=== PATIENT | female | born 1975 | race Hispanic/Latino ===

== ENCOUNTER 2020-07-07 16:19 | Emergency (ER) | payer BC ==
--- NOTE | 2020-07-07 18:17 | EDPHYS ---
Physician Documentation [facility] Name: Mercy Almanza Age: 45 yrs Sex: Female : 1975 Arrival Date: 07/07/2020 Time: 16:28 Bed 18 Private MD: ED Physician James Quiñones HPI: 07/07 18:36 This 45 yrs old Female presents to ER via Ambulatory with complaints of snw chills, Shortness Of Breath. 18:36 The patient has shortness of breath with light activity, during heavy activity. Onset: snw The symptoms/episode began/occurred acutely. Duration: The symptoms are intermittent, pt states she only has occasional difficulty with activity or if she gets too hot. Pt states she has been feeling better every day until today. Associated signs and symptoms: Pertinent positives: This patient does not have any pertinent positive signs or symptoms associated with shortness of breath. Severity of symptoms: At their worst the symptoms were mild. The patient has not experienced similar symptoms in the past. It is unknown whether or not the patient has recently seen a physician. dx with CoVid 19 two weeks ago. Historical: - Allergies: 16:45 No Known Allergies; jd3 - Home Meds: 16:45 None [Active]; jd3 - PMHx: 16:45 None; jd3 - PSHx: 16:45 None; jd3 - Immunization history:: Adult Immunizations up to date. - Social history:: Smoking status: Patient denies any tobacco usage or history of. ROS: 18:34 Constitutional: Negative for fever, chills, and weight loss, Eyes: Negative for injury, snw pain, redness, and discharge, ENT: Negative for injury, pain, and discharge, Neck: Negative for injury, pain, and swelling, Cardiovascular: Negative for chest pain, palpitations, and edema, Abdomen/GI: Negative for abdominal pain, nausea, vomiting, diarrhea, and constipation, Back: Negative for injury and pain, : Negative for injury, bleeding, discharge, and swelling, MS/Extremity: Negative for injury and deformity, Skin: Negative for injury, rash, and discoloration, Neuro: Negative for headache, weakness, numbness, tingling, and seizure, Psych: Negative for depression, anxiety, suicide ideation, homicidal ideation, and hallucinations. 18:34 Respiratory: Positive for cough, with no reported sputum, occasional shortness of breath. . Exam: 18:31 Constitutional: This is a well developed, well nourished patient who is awake, alert, snw and in no acute distress. Head/Face: Normocephalic, atraumatic. Eyes: Pupils equal round and reactive to light, extra-ocular motions intact. Lids and lashes normal. Conjunctiva and sclera are non-icteric and not injected. Cornea within normal limits. Periorbital areas with no swelling, redness, or edema. ENT: Nares patent. No nasal discharge, no septal abnormalities noted. Tympanic membranes are normal and external auditory canals are clear. Oropharynx with no redness, swelling, or masses, exudates, or evidence of obstruction, uvula midline. Mucous membranes moist. Neck: Trachea midline, no thyromegaly or masses palpated, and no cervical lymphadenopathy. Supple, full range of motion without nuchal rigidity, or vertebral point tenderness. No Meningismus. Chest/axilla: Normal chest wall appearance and motion. Nontender with no deformity. No lesions are appreciated. Cardiovascular: Regular rate and rhythm with a normal S1 and S2. No gallops, murmurs, or rubs. Normal PMI, no JVD. No pulse deficits. Abdomen/GI: Soft, non-tender, with normal bowel sounds. No distension or tympany. No guarding or rebound. No evidence of tenderness throughout. Back: No spinal tenderness. No costovertebral tenderness. Full range of motion. Skin: Warm, dry with normal turgor. Normal color with no rashes, no lesions, and no evidence of cellulitis. MS/ Extremity: Pulses equal, no cyanosis. Neurovascular intact. Full, normal range of motion. Neuro: Awake and alert, GCS 15, oriented to person, place, time, and situation. Cranial nerves II-XII grossly intact. Motor strength 5/5 in all extremities. Sensory grossly intact. Cerebellar exam normal. Normal gait. Psych: Awake, alert, with orientation to person, place and time. Behavior, mood, and affect are within normal limits. 18:31 Respiratory: the patient does not display signs of respiratory distress, Respirations: no acute changes, shallow respirations, Breath sounds: rhonchi, that are mild, are heard in the left posterior lower lobe, Respiratory rate: 18 Vital Signs: 16:45 BP 141 / 82; Pulse 107; Resp 20 S; Temp 99.2(O); Pulse Ox 99% on R/A; Weight 77.11 kg jd3 (R); Height 5 ft. 1 in. (154.94 cm) (R); Pain 0/10; 18:17 BP 122 / 83; Pulse 88; Resp 18; Temp 99.0; Pulse Ox 99% on R/A; ph 16:45 Body Mass Index 32.12 (77.11 kg, 154.94 cm) jd3 MDM: 17:23 Patient medically screened. snw 18:34 Data reviewed: vital signs, nurses notes. Data interpreted: Pulse oximetry: on room air snw is 99 %. Interpretation: normal. Counseling: I had a detailed discussion with the patient and/or guardian regarding: the historical points, exam findings, and any diagnostic results supporting the discharge/admit diagnosis, radiology results, the need for outpatient follow up, for definitive care, to return to the emergency department if symptoms worsen or persist or if there are any questions or concerns that arise at home. Special discussion: Based on the history and exam findings, there is no indication for further emergent testing or inpatient evaluation. I discussed with the patient/guardian the need to see the primary care provider for further evaluation of the symptoms. 07/07 17:00 Order name: Chest Single View XRAY; Complete Time: 18:20 snw Administered Medications: No medications were administered Disposition: 07/07/20 18:17 Discharged to Home. Impression: Pneumonia due to SARS-associated coronavirus - Mild. - Condition is Stable. - Discharge Instructions: Community-Acquired Pneumonia, Adult, Rehydration, Adult, COVID-19. - Prescriptions for melatonin - take 10 milligram by ORAL route Every night for 14 days; 14 capsule. Pepcid 20 mg Oral Tablet - take 1 tablet by ORAL route every 12 hours for 14 days; 28 tablet. Albuterol Sulfate 90 mcg/actuation - inhale 1-2 puff by INHALATION route every 4-6 hours; 1 Inhaler. Zithromax 500 mg Oral Tablet - take 1 tablet by ORAL route once daily for 5 days; 5 tablet. - Medication Reconciliation Form, Thank You Letter, Antibiotic Education, Prescription Opioid Use form. - Follow up: Private Physician; When: 2 - 3 days; Reason: Recheck today's complaints, Continuance of care, Re-evaluation by your physician. Follow up: Emergency Department; When: As needed; Reason: Worsening of condition. - Notes: Please take a baby aspirin daily x 14 days. Addendum: 07/10/2020 08:23 Co-signature as Attending Physician, James Quiñones MD I agree with the assessment and k dr plan of care. Signatures: Dispatcher [employer] EDMS James Quiñones MD MD [facility] Sonal Ramirez, MUSIC ENGINEER-C MUSIC ENGINEER-[place] Sushma Garcia, RN RN ph Matt Lorenz RN RN jd3 Corrections: (The following items were deleted from the chart) 07/07 18:34 18:17 07/07/2020 18:17 Discharged to Home. Impression: Pneumonia due to SARS-associated ph coronavirus - Mild. Condition is Stable. Forms are Medication Reconciliation Form, Thank You Letter, Antibiotic Education, Prescription Opioid Use. Follow up: Private Physician; When: 2 - 3 days; Reason: Recheck today's complaints, Continuance of care, Re-evaluation by your physician. Follow up: Emergency Department; When: As needed; Reason: Worsening of condition. snw
--- NOTE | 2020-07-07 18:17 | ER ---
Nurse's Notes [facility] Name: Mercy Almanza Age: 45 yrs Sex: Female : 1975 Arrival Date: 07/07/2020 Time: 16:28 Bed 18 Private MD: Diagnosis: Pneumonia due to SARS-associated coronavirus-Mild Presentation: 07/07 16:43 Chief complaint: Patient states: "i am having shortness of breath and chills for 2 jd3 weeks. I was diagnosed with COVID 2 weeks ago. Coronavirus screen: Client presents with at least one sign or symptom that may indicate coronavirus-19. Standard/surgical mask placed on the client. Provider contacted for isolation considerations. Client reports previous positive COVID test result. Ebola Screen: Patient negative for fever greater than or equal to 101.5 degrees Fahrenheit, and additional compatible Ebola Virus Disease symptoms. Initial Sepsis Screen: Does the patient meet any 2 criteria? No. Patient's initial sepsis screen is negative. Does the patient have a suspected source of infection? No. Patient's initial sepsis screen is negative. Risk Assessment: Do you want to hurt yourself or someone else? Patient reports no desire to harm self or others. Onset of symptoms was June 24, 2020. 16:43 Method Of Arrival: Ambulatory jd3 16:43 Acuity: ALEXUS 3 jd3 Historical: - Allergies: 16:45 No Known Allergies; jd3 - Home Meds: 16:45 None [Active]; jd3 - PMHx: 16:45 None; jd3 - PSHx: 16:45 None; jd3 - Immunization history:: Adult Immunizations up to date. - Social history:: Smoking status: Patient denies any tobacco usage or history of. Screenin:41 Abuse screen: Denies threats or abuse. Denies injuries from another. Nutritional ph screening: No deficits noted. Tuberculosis screening: No symptoms or risk factors identified. Fall Risk None identified. Assessment: 16:57 General: Appears in no apparent distress. Behavior is calm, cooperative, appropriate ph for age, Reports chills for fever for > 3 days. Pain: Complains of pain in "body aches". Neuro: Level of Consciousness is awake, alert, obeys commands, Oriented to person, place, time, situation. Cardiovascular: Capillary refill < 3 seconds in bilateral fingers Patient's skin is warm and dry. Respiratory: Reports shortness of breath on exertion cough that is Airway is patent Respiratory effort is even, unlabored, Respiratory pattern is regular, symmetrical. GI: No signs and/or symptoms were reported involving the gastrointestinal system. Derm: Skin is intact, is healthy with good turgor, Skin is pink, warm \\T\\ dry. Musculoskeletal: Circulation, motion, and sensation intact. Range of motion: intact in all extremities. 18:32 Reassessment: Patient appears in no apparent distress at this time. Patient and/or ph family updated on plan of care and expected duration. Pain level reassessed. Patient is alert, oriented x 3, equal unlabored respirations, skin warm/dry/pink. Pt d/c home w/ prescriptions. Vital Signs: 16:45 BP 141 / 82; Pulse 107; Resp 20 S; Temp 99.2(O); Pulse Ox 99% on R/A; Weight 77.11 kg jd3 (R); Height 5 ft. 1 in. (154.94 cm) (R); Pain 0/10; 18:17 BP 122 / 83; Pulse 88; Resp 18; Temp 99.0; Pulse Ox 99% on R/A; ph 16:45 Body Mass Index 32.12 (77.11 kg, 154.94 cm) jd3 ED Course: 16:28 Patient arrived in ED. ds1 16:33 Sushma Garcia, RN is Primary Nurse. ph 16:41 Patient has correct armband on for positive identification. Bed in low position. Call ph light in reach. Side rails up X 1. Pulse ox on. NIBP on. Door closed. Noise minimized. 16:45 Triage completed. jd3 16:46 Arm band placed on. jd3 16:59 Sonal Ramirez FNP-C is PHCP. snw 16:59 James Quiñones MD is Attending Physician. snw 17:38 Chest Single View XRAY In Process Unspecified. EDMS 18:18 No provider procedures requiring assistance completed. Patient did not have IV access ph during this emergency room visit. Administered Medications: No medications were administered Outcome: 18:17 Discharge ordered by . snw 18:33 Discharged to home ambulatory. ph 18:33 Condition: good 18:33 Discharge instructions given to patient, Instructed on discharge instructions, follow up and referral plans. medication usage, Demonstrated understanding of instructions, follow-up care, medications, Prescriptions given X 4. 18:34 Patient left the ED. ph Signatures: Dispatcher [employer] EDMS Sonal Ramirez, PHU-C COOKER TENDER-[place] ds1 Sushma Garcia, RN RN ph Matt Lorenz RN RN jd3
--- NOTE | 2020-07-07 18:19 | RAD REPORT ---
EXAM DESCRIPTION: RAD - Chest Single View - 07/07/2020 5:38 pm CLINICAL HISTORY: SOB Chest pain. COMPARISON: No comparisons FINDINGS: Portable technique limits examination quality. Mild interstitial lung opacities are present bilaterally suggesting interstitial pneumonitis/ viral b ronchitis. The heart is normal in size. No displaced fractures.
[2020-07-07 18:39] VITALS: O2SAT 99
[2020-07-07 18:40] VITALS: BP 122/83; TEMP 99
== END 2020-07-07 18:34 | disposition home or self-care (01) ==
LOC: ER 16:19
DX: U07.1 COVID-19 (principal); J12.89 Other viral pneumonia
CPT/HCPCS: 71045; 99283

== ENCOUNTER 2020-07-22 23:44 | Observation (INO) | payer BC, OTHER ==
--- OUTSIDE RECORDS SUMMARY | 2020-07-22 23:46 | XMS REPORT | Continuity of Care Document ---
:1975 Author Organization [facility] t Address [address] [place] [address] Care Team Providers Name Role Phone Cary Bueno DO Attending Clinician Problems This patient has no known problems. Allergies, Adverse Reactions, Alerts This patient has no known allergies or adverse reactions. Medications This patient has no known medications. Procedures This patient has no known procedures. Encounters Start End Encounter Admission Attending Care Care Encounter Source Date/Time Date/Time Type Type Clinicians Facility Department ID 2020-06-30 2020-07-01 Emergency MARY KAY Bueno [id number] 22:47:00 01:15:00 Cary Callahan [id number] [place] [id number] [place] [id number] Results This patient has no known results.
--- OUTSIDE RECORDS SUMMARY | 2020-07-22 23:46 | XMS REPORT | Summary of Care ---
:1975 Author Organization [facility] Address [address] [place] [id number] Care Team Providers Name Role Phone Pcp, Does Not Have A Primary Care Provider Reason for Referral Radiology Services (STAT) Status Reason Specialty Diagnoses / Referred By Referred To Procedures Contact Contact New Request Diagnostic Diagnoses Cough Cary Bueno Radiology Procedures XR CHEST 1 VW COVID Chest 1 View J, DO [address] [place] [id number] Reason for Visit Reason Comments Shortness of Breath Palpitations Fever Anxiety Auth/Cert Status Reason Specialty Diagnoses / Referred By Referred To Procedures Contact Contact Emergency Medicine Diagnoses SHORTNESS OF BREATH [facility] Emergency Dept [address] [place] [address] Fax: Encounter Details Date Type Department Care Team Description 06/30/2020 - Emergency ADC-Emergency Cary Bueno, Cough ( Primary Dx) 07/01/2020 Department DO [address] [place] [id number] [place] [address] [phone] Allergies No Known Allergiesdocumented as of this encounter (statuses as of 07/01/2020) Medications No known medicationsdocumented as of this encounter (statuses as of 07/01/2020) Active Problems No known active problemsdocumented as of this encounter (statuses as of 07/01/2020) Social History Tobacco Use Types Packs/Day Years Used Date Never Assessed Sex Assigned at Date Recorded Not on file COVID-19 Exposure Response Date Recorded In the last month, have you been in contact with Yes 06/30/2020 10:56 PM CDT someone who was confirmed or suspected to have Coronavirus / COVID-19? documented as of this encounter Last Filed Vital Signs Vital Sign Reading Time Taken Comments Blood Pressure 145/84 06/30/2020 11:04 PM CDT Pulse 92 06/30/2020 11:04 PM CDT Temperature 37 C (98.6 F) 06/30/2020 11:04 PM CDT Respiratory Rate 16 06/30/2020 11:04 PM CDT Oxygen Saturation 99% 06/30/2020 11:04 PM CDT Inhaled Oxygen Concentration - - Weight 77.1 kg (170 lb) 06/30/2020 11:04 PM CDT Height - - Body Mass Index - - documented in this encounter Discharge Instructions Cary Salgado DO - 07/01/2020DIAGNOSIS 1. COVID NO LIFE-THREATENING FINDINGS ON TODAY'S EXAM. PROCEDURES IN THE ER TODAY: Chest xray Blood work Covid test MEDICATIONS ADMINISTERED IN THE ER TODAY: None YOUR PRESCRIPTIONS AND [id number] MEDICATION RECOMMENDATIONS: None SPECIAL CARE INSTRUCTIONS: None FOLLOW-UP RECOMMENDATIONS: RECOMMEND FOLLOW-UP WITH A PRIMARY CARE PROVIDER OR SPECIALIST IN 2-5 DAYS, ESPECIALLY IF NO IMPROVEMENT IN SYMPTOMS. TO FOLLOW-UP WITHIN THE [facility], TRY THESE OPTIONS (CLINIC APPOINTMENTS AVAILABLE ON [id number]-PABI BASIS): 1. SCHEDULE AN APPOINTMENT ONLINE AT [facility] 2. OR CALL THE [facility] ACCESS CENTER AT OR 3. OR CALL YOUR [facility] PHYSICIAN'S OFFICE DIRECTLY IF YOU ARE ALREADY AN ESTABLISHED [facility] PATIENT. OR, YOU MAY FOLLOW-UP WITH A PROVIDER OF YOUR CHOICE, SUCH : 1. A PHYSICIAN OF YOUR CHOICE 2. [facility], . LOCATIONS IN [facility] 3. [facility], [address], [place]; [phone] RETURN TO ER FOR WORSENING OF SYMPTOMS. AttachmentsThe following attachments cannot be sent through Care Everywhere. Coronavirus Disease 2019 (COVID-19) (Polish)documented in this encounter ED Notes Marilyn Scott RN - 06/30/2020 11:02 PM CDTPt reports palpitations, SOB, feeling anxious, with fever of 100.0F at home and [place] that started today after getting home from work. States that she suddenly felt really ill. Took Tylenol x2 approx 1800. Denies pain. Reports feeling faint. States her son who lives her tested positive for COVID19 approx2 weeks ago. Cary Armstrong DO - 06/30/2020 10:45 PM CDT [facility] Emergency Department Note Patient Name: Mercy Almanza Date of : 1975 45 year old female Treatment Room: [place] [address] Primary Care Physician: PATIENT DOES NOT HAVE A PCP Patient Escorted by: Family [5] Mode of Arrival: Personal means [1] EMS Treatment Prior to ED Arrival: CLOUD SYSTEMS ADMINISTRATOR treatment: Medication (comment) CLOUD SYSTEMS ADMINISTRATOR treatment comments: Tylenol x2 tabs approx 1800. Travel and Exposure Screening: Symptoms Does patient have any of these symptoms?: (not recorded) Exposure Screening Has patient had contact with someone with a communicable disease in the last month?: (not recorded) Diseases exposed to:: (not recorded) Is Patient ?: (not recorded) Exposure Date: (not recorded) Chief Complaint: Chief Complaint Patient presents with Shortness of Breath Palpitations Fever Anxiety History of Present Illness: Patient presents for eval for feeling weak and tired today. No cp, sob or cough. No n/v or diarrhea. States she felt like she had a fever earlier today so she took 2 Tylenol tablets. Did eat today.No dysuria. Has h/o htn, dm and lipids. Takes her DM meds prn. Son recently diagnosed with covid and he lives with her. Here for eval. Past Medical History/Immunizations: History reviewed. No pertinent past medical history. Tetanus received in last 5 years: Yes Childhood immunizations: Up-to-date Allergies: No Known Allergies Past Social History: Substance & Sexual Activity No substance use or sexual activity history on file. Past Surgical History: History reviewed. No pertinent surgical history. Review of Systems: Review of Systems Constitutional: Positive for fever. Negative for chills. Respiratory: Negative for cough and shortness of breath. Cardiovascular: Negative for chest pain. Gastrointestinal: Negative for abdominal pain, nausea and vomiting. Genitourinary: Negative for dysuria. Musculoskeletal: Negative for arthralgias, neck pain and neck stiffness. Skin: Negative for wound. Neurological: Positive for weakness. Psychiatric/Behavioral: Negative for agitation. Physical Exam: ED Triage Vitals [06/30/20 2304] Weight 77.1 kg (170 lb) Actual or estimated Height BP (!) 145/84 Pulse 92 Resp 16 Temp 37 C (98.6 F) Temp source Oral SpO2 99 % Measured on Room air Physical Exam Vitals signs and nursing note reviewed. Constitutional: Appearance: Normal appearance. HENT: Head: Normocephalic and atraumatic. Nose: Nose normal. Neck: Musculoskeletal: Normal range of motion. Cardiovascular: Rate and Rhythm: Normal rate. Pulmonary: Effort: Pulmonary effort is normal. No respiratory distress. Musculoskeletal: Normal range of motion. Skin: General: Skin is warm and dry. Neurological: General: No focal deficit present. Mental Status: She is alert and oriented to person, place, and time. Radiology: Hospital Encounter on 06/30/20 XR CHEST 1 VW COVID Narrative PROCEDURE: CHEST XRAY one view, CLINICAL INDICATION: cough COMPARISON: None FINDINGS: No focal consolidation, pleural effusion, or pneumothorax. The heart is normal in size. No acute osseous abnormality. Impression No acute cardiopulmonary process Disclaimer: Generally, the findings on chest imaging in COVID-19 are not specific, and overlap with other infections, including influenza, H1N1, SARS and MERS. According to the Centers for Disease Control (CDC) and the [employer], viral testing remains the only specific method of diagnosis even if CXR or CT findings are suggestive of COVID-19. Preliminary Report Dictated by Resident: Jose Roberto Zendejas Lab Results (24h): Recent Results (from the past 24 hour(s)) POCT TEST Collection Time: 06/30/20 11:20 PM Result Value Ref Range POCT PREG negative On board controls acceptable with C Line yes POCT PREG LOT # [id number] POCT PREG TEST DATE 08/23/2021 COVID-19 (ID NOW RAPID TESTING) Collection Time: 06/30/20 11:21 PM Specimen: NASOPHARYNGEAL SWAB Result Value Ref Range SARS-CoV-2 Rapid ID NOW Positive (A) Not Detected CBC with Differential Collection Time: 06/30/20 11:21 PM Result Value Ref Range WBC 4.78 4.30 - 11.10 10*3/L RBC 4.18 3.93 - 5.25 10*6/L HGB 10.4 (L) 11.6 - 15.0 g/dL HCT 33.6 (L) 35.7 - 45.2 % MCV 80.4 (L) 80.6 - 95.5 fL MCH 24.9 (L) 25.9 - 32.8 pg MCHC 31.0 (L) 31.6 - 35.1 g/dL RDW-SD 47.2 39.0 - 49.9 fL RDW-CV 16.1 (H) 12.0 - 15.5 % PLT 294 166 - 358 10*3/L MPV 10.5 9.5 - 12.9 fL NRBC/100 WBC 0.0 0.0 - 10.0 /100 WBCs NRBC x10^3 <0.01 10*3/L GRAN MAT (NEUT) % 60.7 % IMM GRAN % 0.20 % LYMPH % 25.9 % MONO % 10.9 % EOS % 1.9 % BASO % 0.4 % GRAN MAT x10^3(ANC) 2.90 1.88 - 7.09 10*3/uL IMM GRAN x10^3 <0.03 0.00 - 0.06 10*3/uL LYMPH x10^3 1.24 (L) 1.32 - 3.29 10*3/uL MONO x10^3 0.52 0.33 - 0.92 10*3/uL EOS x10^3 0.09 0.03 - 0.39 10*3/uL BASO x10^3 <0.03 0.01 - 0.07 10*3/uL Basic Metabolic Panel (NA, K, CL, CO2, GLUCOSE, BUN, CREATININE, CA) Collection Time: 06/30/20 11:21 PM Result Value Ref Range NA 138 135 - 145 mmol/L K 3.4 (L) 3.5 - 5.0 mmol/L CL 105 98 - 108 mmol/L CO2 TOTAL 25 23 - 31 mmol/L AGAP 8 2 - 16 BUN 7 7 - 23 mg/dL GLUCOSE 150 (H) 70 - 110 mg/dL CREATININE 0.68 0.50 - 1.04 mg/dL CALCIUM 8.9 8.6 - 10.6 mg/dL eGFR Calculation (Non-) 93.6 mL/min/1.73m2 eGFR Calculation () 113.4 mL/min/1.73m2 Hepatic Function Panel (ALB, T.PRO, BILI T, BU/BC, ALT, AST, ALK PHOS) Collection Time: 06/30/20 11:21 PM Result Value Ref Range TOTAL BILI 0.2 0.1 - 1.1 mg/dL BILI UNCON 0.4 0.1 - 1.1 mg/dL BILI CONJ 0.0 0.0 - 0.3 mg/dL T PROTEIN 8.0 6.3 - 8.2 g/dL ALBUMIN 4.4 3.5 - 5.0 g/dL ALK PHOS 90 34 - 122 U/L ALTv 22 5 - 35 U/L AST(SGOT) 32 13 - 40 U/L Troponin I Collection Time: 06/30/20 11:21 PM Result Value Ref Range TROPONIN I <0.012 <=0.034 ng/mL Orders and Treatments: Orders Placed This Encounter Procedures Chest 1 View COVID-19 (ID NOW RAPID TESTING) CBC with Differential Basic Metabolic Panel (NA, K, CL, CO2, GLUCOSE, BUN, CREATININE, CA) Hepatic Function Panel (ALB, T.PRO, BILI T, BU/BC, ALT, AST, ALK PHOS) Troponin I No orders of the defined types were placed in this encounter. ED COURSE patient presents for eval for feeling tired and no energy today. No cp or sob. No cough. [place] febrile earlier today so took 2 Tylenol. No n/v. Son recently diagnosed with covid and lives with her.Does not smoke. VSS here in the EC. No respiratory distress. Will obtain CXR. Will check labs and screen for covid. Anticipate discharge home later. 0050 - covid positive. cxr unremarkable. Patient feeling better. Ambulatory O2 sat >95%. Stable here in the EC and is ok for discharge home with PCP f/u. Advised to self-quarantine. MDM: Coding Diagnosis/Impression: ICD-10-CM ICD-9-CM 1. Cough R05 786.2 Disposition/Condition: ED Disposition None Discharge Medications: Patient's Medications No medications on file Follow-up: Electronically signed by: Cary Bueno DO 06/30/2020 11:15 PM documented in this encounter Miscellaneous Notes ED Nurse Note - Lois Atkinson RN - 07/01/2020 1:13 AM CDTPt given printed and verbal discharge instructions regarding covid virus infection, encouraged hydrat ion, Prescriptions provided: none Discussed alternating with Tylenol and ibuprofen every 3-4 hours as needed for fever or pain, and totake with food to avoid GI distress. Stay at home and self quarantine for at least 14 days. Pt verbalized understanding of instructions, pt awake alert oriented, resp reg unlabored, skin w/d, color appropriate for race, moves all ext well,pt encouraged to follow up with pcp Advised to seek medical attention for new/prolonged/worsening of symptoms, Symptoms improved No adverse reaction to meds given in ER noted upon discharge PIV d'cd, dressing to site, catheter in tact. Awake, alert oriented, resp reg unlabored, skin w/d, pt leaving amb with steady gait, in no apparent distress, D Nurse Note - Lois Atkinson RN - 07/01/2020 12:58 AM CDTInterpretor ID # [id number] D Nurse Note - Lois Atkinson RN - 06/30/2020 11:18 PM CDTLanguage patient flow coordinator ID #[id number]. D Nurse Note - Lois Atkinson RN - 06/30/2020 11:14 PM CDTPatient denies any symptoms at this time. D Nurse Note - Lois Atkinson, RN - 06/30/2020 11:10 PM CDTPatient ambulated in place for 1 minute while maintaining 02 saturations between 97%-99% on RA. documented in this encounter Plan of Treatment Name Type Priority Associated Diagnoses Date/Ti me XR CHEST 1 VW COVID IMAGING STAT Cough 06/30/20 20 11:31 PM CDT Health Maintenance Due Date Last Done Comments Depression Screening 1987 DTaP,Tdap,and Td Vaccines (1 1994 - Tdap) PAP SMEAR 08/20/2010 08/20/2007, 03/15/2004 Breast Cancer Screening 2015 (MAMMOGRAM) INFLUENZA VACCINE (#1) 2020 Colorectal Cancer Screening 2025 PNEUMOCOCCAL 0-64 YEARS Aged Out No longe r eligible based COMBINED SERIES on patient's age to complete this to pic documented as of this encounter Procedures Procedure Name Priority Date/Time Associated Diagnosis Comme nts XR CHEST 1 VW COVID STAT 06/30/2020 11:31 PM CDT Cough Procedure Note - [facility], Radia nt Results Inft User - 06/30/2020 11:37 PM CDT PROCEDURE: CHEST XRAY one view, CLINICAL INDICATION: cough COMPARISON: None FINDINGS: No focal consolidation, pleu ral effusion, or pneumothorax. The heart is normal in size. No acute osseous abnormality . IMPRESSION No acute cardiopulmonary pro cess Disclaimer: Generally, the f indings on chest imaging in COVID-19 are not specific, and overlap with o ther infections, including influenza, H1N1, SARS and MERS. According to the Centers for Disease Control (CDC) and the [employer], viral testing remains the only specific method of diagnosis even if CXR or CT findings a re suggestive of COVID-19. Preliminary Report Dictated by Resident: Jose Roberto Zendejas COVID-19 (ID NOW RAPID STAT 06/30/2020 11:21 PM CDT Cough Results for this TESTING) procedure are i n the results section . CBC WITH DIFF STAT 06/30/2020 11:21 PM CDT Cough Res ults for this procedure are i n the results section . BASIC METABOLIC PANEL STAT 06/30/2020 11:21 PM CDT Cough Results for this (NA, K, CL, CO2, procedure a re in the GLUCOSE, BUN, results sectio n. CREATININE, CA) HEPATIC FUNCTION PANEL STAT 06/30/2020 11:21 PM CDT Cough Results for this (18555) (ALB,T.PRO,BILI proc edure are in the T,BU/BC,ALT,AST,ALK results section. PHOS) TROPONIN I STAT 06/30/2020 11:21 PM CDT Cough Resu lts for this procedure are i n the results section . POCT TEST MARIA ISABEL 06/30/2020 11:20 PM CDT Cough Results for this procedure are i n the results section . CONSENT/REFUSAL FOR Routine 06/30/2020 10:47 PM CDT DIAGNOSIS AND TREATMENT NOTICE OF PRIVACY Routine 06/30/2020 10:46 PM CDT PRACTICES documented in this encounter Results Troponin I (06/30/2020 11:21 PM CDT) Pathologist Sig [employer] TROPONIN I <0.012 <=0.034 ng/mL [facility] Specimen Blood - VENOUS Narrative Performed At Equal or Less than 0.034 ng/ml---Normal [facility] Note: Cardiac troponin begins to rise 3-4 hours after the onset of ischemia. Repeat in 4-6 hours if the sample was drawn within 3-4 hours of the onset of the symptom and found normal. Between 0.035 and 0.120 ng/mL--- Borderline. Questionable myocardial injury or necros is Note: Serial measurement may be necessary to confirm or exclude the diagnosis of myocardial injury or necrosis; Clinical correlation (symptoms, EKGs, imaging studies, and others) required; Repeat in 4-6 hours if clinically indicated. Equal or Higher than 0.121 ng/mL---Abnormal. Myocardial Injury or Necrosis Likely Biotin has been reported to cause a negative bias, interpret results relative to patient's use of biotin. Performing Organization Address City/State/Zipcode Phone Number [facility] CLIA: [id number] [place] [address] Hepatic Function Panel (ALB, T.PRO, BILI T, BU/BC, ALT, AST, ALK PHOS) (06/30/2020 11:21 PM CDT) Pathologist Sig [employer] TOTAL BILI 0.2 0.1 - 1.1 mg/dL [facility] BILI UNCON 0.4 0.1 - 1.1 mg/dL [facility] BILI CONJ 0.0 0.0 - 0.3 mg/dL [facility] T PROTEIN 8.0 6.3 - 8.2 g/dL [facility] ALBUMIN 4.4 3.5 - 5.0 g/dL [facility] ALK PHOS 90 34 - 122 U/L [facility] ALTv 22 5 - 35 U/L [facility] AST(SGOT) 32 13 - 40 U/L [facility] Specimen Blood - VENOUS Performing Organization Address City/State/Zipcode Phone Number [facility] CLIA: [id number] [place] [address] Basic Metabolic Panel (NA, K, CL, CO2, GLUCOSE, BUN, CREATININE, CA) (06/30/2020 11:21 PM CDT) [facility] NA 138 135 - 145 [facility] mmol/L [facility] K 3.4 (L) 3.5 - 5.0 [facility] mmol/L [facility] CL 105 98 - 108 mmol/L [facility] CO2 TOTAL 25 23 - 31 mmol/L [facility] AGAP 8 2 - 16 [facility] BUN 7 7 - 23 mg/dL [facility] GLUCOSE 150 (H) 70 - 110 mg/dL [facility] CREATININE 0.68 0.50 - 1.04 [facility] mg/dL [facility] CALCIUM 8.9 8.6 - 10.6 [facility] mg/dL [facility] eGFR Calculation 93.6 mL/min/1.73m2 [facility] (Non-[facility] [place]) eGFR Calculation 113.4 mL/min/1.73m2 [facility] () [facility] Specimen Blood - VENOUS Narrative Performed At Association of Glomerular Filtration Rate (GFR) [facility] and Staging of Kidney Disease* + + +- + | GFR (mL/min/1.73 m2) | With Kidney Damage | Without Kidney Damage + + +- + | >90 | Stage one | Normal + + +- + | 60-89 | Stage two | Decreased GFR + + +- + | 30-59 | Stage three | Stage three + + +- + | 15-29 | Stage four | Stage four + + +- + | <15 (or dialysis) | Stage five | Stage five + + +- + *Each stage assumes the associated GFR level has been in effect for at least three months. Stages 1 to 5, with or without kidney disease, indicate chronic kidney disease. Notes: Determination of stages one and two (with eGFR >59mL/min/1.73 m2) requires estimation of kidney damage for at least three months as defined by structural or functional abnormalities of the kidney, manifested by either: Pathological abnormalities or Markers of kidney damage (including abnormalities in the composition of the blood or urine or abnormalities in imaging tests). Performing Organization Address City/State/Zipcode Phone Number [facility] CLIA: [id number] [place] [address] CBC with Differential (06/30/2020 11:21 PM CDT) Pathologist Sig nature WBC 4.78 4.30 - 11.10 [facility] 10*3/L [facility] RBC 4.18 3.93 - 5.25 [facility] 10*6/L [facility] HGB 10.4 (L) 11.6 - 15.0 [facility] g/dL [facility] HCT 33.6 (L) 35.7 - 45.2 % [facility] MCV 80.4 (L) 80.6 - 95.5 fL [facility] MCH 24.9 (L) 25.9 - 32.8 pg [facility] MCHC 31.0 (L) 31.6 - 35.1 [facility] g/dL [facility] RDW-SD 47.2 39.0 - 49.9 fL [facility] RDW-CV 16.1 (H) 12.0 - 15.5 % [facility] PLT 294 166 - 358 [facility] 10*3/L [facility] MPV 10.5 9.5 - 12.9 fL [facility] NRBC/100 WBC 0.0 0.0 - 10.0 /100 [facility] WBCs [facility] NRBC x10^3 <0.01 10*3/L [facility] GRAN MAT (NEUT) % 60.7 % [facility] IMM GRAN % 0.20 % [facility] LYMPH % 25.9 % [facility] MONO % 10.9 % [facility] EOS % 1.9 % [facility] BASO % 0.4 % [facility] GRAN MAT x10^3(ANC) 2.90 1.88 - 7.09 [facility] 10*3/uL [facility] IMM GRAN x10^3 <0.03 0.00 - 0.06 [facility] 103/uL [facility] LYMPH x10^3 1.24 (L) 1.32 - 3.29 [facility] 103/[facility] LABORATORY MONO x10^3 0.52 0.33 - 0.92 [facility] 103/uL [facility] EOS x10^3 0.09 0.03 - 0.39 [facility] 103/uL [facility] BASO x10^3 <0.03 0.01 - 0.07 [place] [address]/[facility] LABORATORY Specimen Blood - VENOUS Performing Organization Address City/State/Zipcode Phone Number [facility] CLIA: [id number] [place] [address] [address] COVID-19 (ID NOW RAPID TESTING) (06/30/2020 11:21 PM CDT) SARS-CoV-2 Rapid ID Positive (A) Not Detected [facility] Specimen Swab - NASOPHARYNGEAL SWAB Narrative Performed At [facility] COVID-19 Assay is an isothermal nucleic [facility] acid amplification test intended for the qualitative detection of nucleic acid from SARS-CoV-2 viral RNA in nasopharyngeal (MAINTENANCE MECHANIC) specimens. It is used under Emergency Use Authorization (EUA) by FDA. The limit of detection (LOD) of the assay is 125 Genome Equivalents/mL. A positive result is indicative of the presence of SARS-CoV-2 RNA. Clinical correlation with patient history and other diagnostic information is necessary to determine patient infection status. A negative (Not Detected) result does not preclude SARS-CoV-2 infection. In patients with clinical symptoms and other tests that are consistent with SARS-CoV-2 infection, negative results should be treated as presumptive negative and a new specimen should be tested with alternative PCR molecular test. Invalid: Please collect a new specimen for repeat patient testing if clinically indicated. Performing Organization Address City/State/Zipcode Phone Number [facility] CLIA: [id number] [place] [address] POCT TEST (06/30/2020 11:20 PM CDT) Pathologist Sig nature POCT PREG negative On board controls acceptable yes with C Line POCT PREG LOT # [id number] POCT PREG TEST DATE 08/23/2021 Specimen Urine - URINE, CLEAN CATCH documented in this encounter Visit Diagnoses Diagnosis Cough - Primary documented in this encounter Additional Health Concerns Infection Onset Date Last Indicated Resolved Time COVID-19 Rule Out 06/30/2020 06/30/2020 07/01/2020 12: 07 AM CDT COVID-19 Confirmed 06/30/2020 06/30/2020 documented as of this encounter Insurance Payer Benefit Plan Subscriber ID Effective Dates Phone Address Type / Group [employer]BS [facility] [id number] 2017-Patrick [phone] [address] PPO/POS [place] [id number] [place] [address] (Work) [id number] documented as of this encounter"
[2020-07-23 01:23] LABS: Absolute Lymphocytes (CBC) 1.6 K/uL (0.7-4.9); Hematocrit 36.3 % (36.0-45.0); MPV 9.1 fL (7.6-11.3); RBC Red Blood Cell Count 4.54 M/uL (3.86-4.86)
[2020-07-23 01:27] LABS: Protime INR 0.94
[2020-07-23 01:47] LABS: ALT/SGPT 26 U/L (12-78); AST/SGOT 17 U/L (15-37); Albumin 3.8 g/dL (3.4-5.0); Alkaline Phosphatase 92 U/L (45-117); BUN Blood Urea Nitrogen 9 mg/dL (7-18); Bicarbonate 25 mmol/L (21-32); Bilirubin Direct < 0.1 mg/dL (0-0.2); Bilirubin Total 0.4 mg/dL (0.2-1.0); CKMB Creatine Kinase MB < 1.0 ng/mL (0.3-3.6); Creatine Phosphokinase 80 U/L (26-192); Glucose Level 171 mg/dL (74-106); Lipase 212 U/L (73-393); Magnesium 2.1 mg/dL (1.8-2.4); NT PRO-BNP 20 pg/mL (<125); Potassium 3.5 mmol/L (3.5-5.1); Sodium Level 141 mmol/L (136-145); Troponin (Emerg Dept Use Only) < 0.02 ng/mL (0.0-0.045)
[2020-07-23] MEDS ORDERED: METHYLPREDNISOLONE 125 MG INJ ONE (02:24)
[2020-07-23 02:28] LABS: Urine Blood TRACE (NEG); Urine Glucose NEGATIVE (NEG); Urine Protein NEGATIVE (NEG)
[2020-07-23] MEDS ORDERED: NA CHLORIDE 0.9% 1,000 ML ONE (03:27)
[2020-07-23] MEDS ORDERED: METOPROLOL TARTRATE 5 MG/5 ML INJ IV ONE (03:32)
[2020-07-23] MEDS ORDERED: AZITHROMYCIN 500 MG INJ IVPB ONE (03:59)
[2020-07-23] MEDS ORDERED: NA CHLORIDE 0.9% 250 ML ONE (04:00)
[2020-07-23] MEDS ORDERED: CEFTRIAXONE/SWI 1gm 1 GM/10 ML SYR ONE (04:00)
[2020-07-23] MEDS ORDERED: LORazepam 2 MG/ML VIAL ONE (04:10)
[2020-07-23 04:12] LABS: Thyroid Stimulating Hormone 6.1 uIU/mL (0.360-3.740)
--- NOTE | 2020-07-23 04:43 | EDPHYS ---
Physician Documentation [facility] Name: Mercy Almanza Age: 45 yrs Sex: Female : 1975 Arrival Date: 07/22/2020 Time: 23:47 Bed 7 Private MD: ED Physician Jose Rivas HPI: 07/23 02:05 This 45 yrs old Female presents to ER via Wheelchair with complaints of mh7 Shortness Of Breath. 02:06 The patient has shortness of breath at rest. Onset: The symptoms/episode began/occurred mh7 at 22:30. Duration: The symptoms are intermittent, with no pattern. The patient's shortness of breath is aggravated by nothing, is alleviated by inhaler. Associated signs and symptoms: Pertinent positives: palpitations, Pertinent negatives: chest pain, non-productive cough, productive cough, diaphoresis, dizziness, fever, hemoptysis, loss of consciousness, nausea, numbness in extremities, visual changes, vomiting. Severity of symptoms: At their worst the symptoms were moderate today, in the emergency department the symptoms have improved moderately. Patient states that she tested positive for COVID 19 3 weeks ago. She states that she started to have SOB this evening. She denies any chest pain, fever, cough, recent travel, sick contacts, nausea, vomiting, diarrhea, or abdominal pain.. [employer] REPL[employer]ER: 00:11 LMP 06/2020 rv Historical: - Allergies: 00:06 No Known Allergies; rr5 - Home Meds: 00:06 Albuterol Inhl [Active]; Metformin Oral [Active]; cholesterol medication cannot recall rr5 the name [Active]; Famotidine Oral [Active]; Melatonin Oral [Active]; - PMHx: 00:06 covid; Hypertension; Hyperlipidemia; rr5 - Immunization history:: Adult Immunizations unknown. - Social history:: Smoking status: unknown Patient/guardian denies using alcohol, street drugs, tobacco products. ROS: 02:06 Constitutional: Negative for fever, chills, and weight loss, Eyes: Negative for injury, mh7 pain, redness, and discharge, ENT: Negative for injury, pain, and discharge, Neck: Negative for injury, pain, and swelling, Abdomen/GI: Negative for abdominal pain, nausea, vomiting, diarrhea, and constipation, Back: Negative for injury and pain, : Negative for injury, bleeding, discharge, and swelling, MS/Extremity: Negative for injury and deformity, Skin: Negative for injury, rash, and discoloration, Neuro: Negative for headache, weakness, numbness, tingling, and seizure, Psych: Negative for depression, anxiety, suicide ideation, homicidal ideation, and hallucinations, Allergy/Immunology: Negative for hives, rash, and allergies, Endocrine: Negative for neck swelling, polydipsia, polyuria, polyphagia, and marked weight changes, Hematologic/Lymphatic: Negative for swollen nodes, abnormal bleeding, and unusual bruising. Exam: 02:06 Constitutional: This is a well developed, well nourished patient who is awake, alert, mh7 and in no acute distress. Head/Face: Normocephalic, atraumatic. Eyes: Pupils equal round and reactive to light, extra-ocular motions intact. Lids and lashes normal. Conjunctiva and sclera are non-icteric and not injected. Cornea within normal limits. Periorbital areas with no swelling, redness, or edema. ENT: Nares patent. No nasal discharge, no septal abnormalities noted. Tympanic membranes are normal and external auditory canals are clear. Oropharynx with no redness, swelling, or masses, exudates, or evidence of obstruction, uvula midline. Mucous membranes moist. Neck: Trachea midline, no thyromegaly or masses palpated, and no cervical lymphadenopathy. Supple, full range of motion without nuchal rigidity, or vertebral point tenderness. No Meningismus. Chest/axilla: Normal chest wall appearance and motion. Nontender with no deformity. No lesions are appreciated. Cardiovascular: Regular rate and rhythm with a normal S1 and S2. No gallops, murmurs, or rubs. Normal PMI, no JVD. No pulse deficits. Respiratory: Lungs have equal breath sounds bilaterally, clear to auscultation and percussion. No rales, rhonchi or wheezes noted. No increased work of breathing, no retractions or nasal flaring. Abdomen/GI: Soft, non-tender, with normal bowel sounds. No distension or tympany. No guarding or rebound. No evidence of tenderness throughout. Back: No spinal tenderness. No costovertebral tenderness. Full range of motion. Skin: Warm, dry with normal turgor. Normal color with no rashes, no lesions, and no evidence of cellulitis. MS/ Extremity: Pulses equal, no cyanosis. Neurovascular intact. Full, normal range of motion. Neuro: Awake and alert, GCS 15, oriented to person, place, time, and situation. Cranial nerves II-XII grossly intact. Motor strength 5/5 in all extremities. Sensory grossly intact. Cerebellar exam normal. Normal gait. Psych: Awake, alert, with orientation to person, place and time. Behavior, mood, and affect are within normal limits. 07:07 ECG was reviewed by the Attending Physician. [facility] Vital Signs: 00:01 BP 132 / 97; Pulse 95; Resp 24; Temp 98.7; Pulse Ox 100% ; Weight 72.57 kg; Height 5 rr5 ft. 1 in. (154.94 cm); Pain 0/10; 03:06 BP 144 / 97; Pulse 151; Resp 23; Pulse Ox 100% on R/A; rv 03:15 BP 125 / 81; Pulse 126; Resp 16; Pulse Ox 100% on R/A; rv 03:54 Pulse 116; rv 04:04 BP 126 / 76; Pulse 118 MON; Resp 20; Pulse Ox 98% on R/A; rv 05:15 BP 115 / 83; Pulse 130; Resp 20; Temp 98.5; Pulse Ox 100% ; rv 00:01 Body Mass Index 30.23 (72.57 kg, 154.94 cm) rr5 04:04 Sinus tachycardia rv [place] Coma Score: 03:00 Eye Response: spontaneous(4). Verbal Response: oriented(5). Motor Response: obeys rv commands(6). Total: 15. MDM: 00:[address] [facility] 04:41 Differential diagnosis: Anemia Anxiety Reaction asthma, Chronic Obstructive Pulmonary mh7 Disease pneumonia, Pneumothorax pulmonary edema, Pulmonary Embolism. Data reviewed: vital signs, nurses notes, old medical records, lab test result(s), cardiac enzymes, CBC, electrolytes, urinalysis, EKG, radiologic studies, CT scan, plain films. Data interpreted: Pulse oximetry: on room air is 98 %. Interpretation: normal. Counseling: I had a detailed discussion with the patient and/or guardian regarding: the historical points, exam findings, and any diagnostic results supporting the discharge/admit diagnosis, lab results, radiology results, the need for further work-up and treatment in the hospital. 07:07 ED course: Patient developed tachycardia into 140's eventually improved to 110's.. 07/23 00:53 Order name: Blood Culture Adult (2) 07/23 00:53 Order name: BMP; Complete Time: :59 07/23 00:53 Order name: CBC with Diff; Complete Time: :59 07/23 00:53 Order name: Ckmb; Complete Time: 07/23 00:53 Order name: CPK; Complete Time: 07/23 00:53 Order name: D-Dimer; Complete Time: :07/23 00:53 Order name: Hepatic Function; Complete Time: 07/23 00:53 Order name: Lipase; Complete Time: 07/23 00:53 Order name: Magnesium; Complete Time: 07/23 00:53 Order name: NT PRO-BNP; Complete Time: 07/23 00:53 Order name: PT-INR; Complete Time: 07/23 00:53 Order name: Ptt, Activated; Complete Time: 07/23 00:53 Order name: Troponin (emerg Dept Use Only); Complete Time: 07/23 02:20 Order name: Urine --Ancillary (enter results); Complete Time: 03:08 ds4 07/23 00:07 Order name: EKG - Nurse/Tech; Complete Time: 00:12 rr5 07/23 00:53 Order name: EKG; Complete Time: 00:54 07/23 00:53 Order name: Cardiac monitoring; Complete Time: 01:13 07/23 00:53 Order name: IV Saline Lock; Complete Time: 01:13 07/23 00:54 Order name: Chest Single View XRAY 07/23 02:06 Order name: CT Chest For PE Angio 07/23 02:20 Order name: Urine Dipstick--Ancillary (enter results); Complete Time: 03:08 ds4 07/23 03:33 Order name: TSH; Complete Time: 04:35 mh7 07/23 04:14 Order name: T4 Free; Complete Time: 04:35 EDMS 07/23 00:53 Order name: Labs collected and sent; Complete Time: 01:13 [facility] 07/23 00:53 Order name: O2 Per Protocol; Complete Time: [facility] 07/23 00:53 Order name: O2 Sat Monitoring; Complete Time: EC:07 Rate is 100 beats/min. Rhythm is regular, Normal Sinus Rhythm. QRS [place] is Normal. ND mh7 interval is normal. QRS interval is normal. QT interval is normal. No Q waves. T waves are Normal. No ST changes noted. Clinical impression: Normal ECG. Administered Medications: 02:15 Drug: SOLU-Medrol 125 mg Route: IVP; Site: right antecubital; rr5 05:15 Follow up: Response: No adverse reaction rv 03:20 Drug: NS 0.9% 1000 ml Route: IV; Rate: 1000 ml; Site: right antecubital; rv 05:15 Follow up: IV Status: Completed infusion; IV Intake: 1000ml rv 03:25 Drug: Lopressor 5 mg Route: IVP; Site: right antecubital; rv 03:54 Follow up: Pulse 116 bpm; Response: No adverse reaction rv 03:54 Drug: Rocephin - (cefTRIAXone) 1 grams Route: IVPB; Infused Over: 30 mins; Site: right rv antecubital; 05:14 Follow up: Response: No adverse reaction; IV Status: Completed infusion rv 03:54 Drug: Zithromax 500 mg Route: IVPB; Infused Over: 1 hrs; Site: right antecubital; rv 05:14 Follow up: IV Status: Completed infusion; IV Intake: 250ml rv 04:04 Drug: Ativan 1 mg Route: IVP; Site: right antecubital; rv 05:13 Follow up: Response: No adverse reaction rv 04:38 CANCELLED (GIVEN. PT OWN STOCK.): Albuterol HFA Inhaler 2 puffs Inhalation once rv Disposition: 07:07 Co-signature as Attending Physician, Jose Rivas MD. [facility] Disposition: 07/23/20 04:43 Hospitalization ordered by Crystal Ahn for Observation. Preliminary diagnosis are COVID Pneumonia, Tachycardia. - Bed requested for Intensive Care Unit. - Status is Observation. rv - Condition is Stable. - Problem is new. - Symptoms have improved. Signatures: Dispatcher [employer] EDUT Joy Parker RN RN mw Manav Humphrey, RN RN rv Jalil Riggins, RN RN rr5 Jose Rivas MD MD 7 Corrections: (The following items were deleted from the chart) 04:38 04:35 Albuterol HFA Inhaler 2 puffs Inhalation once ordered. 7 rv 04:38 04:38 Albuterol HFA Inhaler 2 puffs Inhalation once ordered. rv rv 04:53 04:43 Hospitalization Ordered by Crystal Ahn MD for Observation. Preliminary mw diagnosis is COVID Pneumonia; Tachycardia. Bed requested for Telemetry/MedSurg (observation). Status is Observation. Condition is Stable. Problem is new. Symptoms have improved. mh7 05:26 04:53 07/23/2020 04:43 Hospitalization Ordered by Crystal Ahn MD for Observation. rv Preliminary diagnosis is COVID Pneumonia; Tachycardia. Bed requested for Intensive Care Unit. Status is Observation. Condition is Stable. Problem is new. Symptoms have improved. mw
--- NOTE | 2020-07-23 04:43 | ER ---
Nurse's Notes [facility] Name: Mercy Almanza Age: 45 yrs Sex: Female : 1975 Arrival Date: 07/22/2020 Time: 23:47 Bed 7 Private MD: Diagnosis: COVID Pneumonia;Tachycardia Presentation: 07/23 00:01 Chief complaint: Patient states: having shortness of breath, my heart is pounding and rr5 feeling cold. I was tested for covid last 2-3 weeks ago it was positive. now the symptoms came back and it getting worst. Coronavirus screen: Client presents with at least one sign or symptom that may indicate coronavirus-19. Standard/surgical mask placed on the client. Provider contacted for isolation considerations. Client reports previous positive COVID test result. Date of collection: June 2020. Ebola Screen: Patient negative for fever greater than or equal to 101.5 degrees Fahrenheit, and additional compatible Ebola Virus Disease symptoms Patient denies exposure to infectious person. Patient denies travel to an Ebola-affected area in the 21 days before illness onset. Initial Sepsis Screen: Does the patient meet any 2 criteria? RR > 20 per min. Does the patient have a suspected source of infection? Yes: Productive cough/pneumonia. Risk Assessment: Do you want to hurt yourself or someone else? Patient reports no desire to harm self or others. Onset of symptoms was July 23, 2020. 00:01 Method Of Arrival: Wheelchair rr5 00:01 Acuity: ALEXUS 3 rr5 Triage Assessment: 00:11 General: Appears comfortable. Respiratory: Reports air hunger Onset: The rv symptoms/episode began/occurred today, the patient has mild shortness of breath. TOXICOLOGIST: 00:11 [facility] 06/2020 rv Historical: - Allergies: 00:06 No Known Allergies; rr5 - Home Meds: 00:06 Albuterol Inhl [Active]; Metformin Oral [Active]; cholesterol medication cannot recall rr5 the name [Active]; Famotidine Oral [Active]; Melatonin Oral [Active]; - PMHx: 00:06 covid; Hypertension; Hyperlipidemia; rr5 - Immunization history:: Adult Immunizations unknown. - Social history:: Smoking status: unknown Patient/guardian denies using alcohol, street drugs, tobacco products. Screenin:07 Abuse screen: Denies threats or abuse. Denies injuries from another. Nutritional rr5 screening: No deficits noted. Tuberculosis screening: No symptoms or risk factors identified. Fall Risk IV access (20 points). Total Naylor Fall Scale indicates No Risk (0-24 pts). Assessment: 00:09 General: Appears comfortable, Behavior is calm, cooperative. Pain: Denies pain. Neuro: rv Level of Consciousness is awake, alert, obeys commands, Oriented to person, place, time, situation. Cardiovascular: Rhythm is sinus tachycardia. Respiratory: Airway is patent Respiratory effort is even, unlabored, Respiratory pattern is tachypnea Breath sounds are clear bilaterally. Derm: Skin is intact. 00:10 Cardiovascular: Reports palpitations. rv 03:18 Cardiovascular: Rhythm is sinus tachycardia. rv 03:18 Reassessment: EPISODE OF SVT. DENIES ANY CHEST PAIN OR SOB/. EKG WAS DONE. DR RIVAS rv AT BEDSIDE. 03:28 Reassessment: RECEIVED NEW ORDER, GIVEN LOPRESSOR IV. HEART RHYTHM CONVERTED TO SINUS rv [place], WITH HEART RATE OF 103. 03:39 Reassessment:. rv 03:40 Reassessment: PATIENT IS REASSURED OF THE SITUATION. POSITIONED TO COMFORT. PROVIDED rv WATER. General: Behavior is anxious. 05:16 Reassessment: PATIENT APPEARS TO BE MORE COMFORTABLE. EXPLAINED THE PLAN OF CARE. rv PATIENT UNDERSTOOD AND AGREED. Vital Signs: 00:01 BP 132 / 97; Pulse 95; Resp 24; Temp 98.7; Pulse Ox 100% ; Weight 72.57 kg; Height 5 rr5 ft. 1 in. (154.94 cm); Pain 0/10; 03:06 BP 144 / 97; Pulse 151; Resp 23; Pulse Ox 100% on R/A; rv 03:15 BP 125 / 81; Pulse 126; Resp 16; Pulse Ox 100% on R/A; rv 03:54 Pulse 116; rv 04:04 BP 126 / 76; Pulse 118 MON; Resp 20; Pulse Ox 98% on R/A; rv 05:15 BP 115 / 83; Pulse 130; Resp 20; Temp 98.5; Pulse Ox 100% ; rv 00:01 Body Mass Index 30.23 (72.57 kg, 154.94 cm) rr5 04:04 Sinus tachycardia rv [place] Coma Score: 03:00 Eye Response: spontaneous(4). Verbal Response: oriented(5). Motor Response: obeys rv commands(6). Total: 15. ED Course: 07/22 23:47 Patient arrived in ED. bp1 23:49 Manav Humphrey RN is Primary Nurse. rv 07/23 00:05 Triage completed. rr5 00:07 Arm band placed on right wrist. EKG completed in triage. Results shown to MD. rr5 00:07 Patient has correct armband on for positive identification. Placed in gown. Bed in low rr5 position. Call light in reach. top lift trimmer on. Pulse ox on. NIBP on. 00:11 Jose Rivas MD is Attending Physician. mh7 01:14 No provider procedures requiring assistance completed. Inserted saline lock: 20 gauge rv in right antecubital area, using aseptic technique. Blood collected. 01:22 Chest Single View XRAY In Process Unspecified. EDMS 03:00 CT Chest For PE Angio In Process Unspecified. EDMS 04:42 Crystal Ahn MD is Hospitalizing Provider. mh7 05:13 IV is patent, with fluids infusing freely, with good blood return, Patient admitted, IV rv remains in place. Administered Medications: 02:15 Drug: SOLU-Medrol 125 mg Route: IVP; Site: right antecubital; rr5 05:15 Follow up: Response: No adverse reaction rv 03:20 Drug: NS 0.9% 1000 ml Route: IV; Rate: 1000 ml; Site: right antecubital; rv 05:15 Follow up: IV Status: Completed infusion; IV Intake: 1000ml rv 03:25 Drug: Lopressor 5 mg Route: IVP; Site: right antecubital; rv 03:54 Follow up: Pulse 116 bpm; Response: No adverse reaction rv 03:54 Drug: Rocephin - (cefTRIAXone) 1 grams Route: IVPB; Infused Over: 30 mins; Site: right rv antecubital; 05:14 Follow up: Response: No adverse reaction; IV Status: Completed infusion rv 03:54 Drug: Zithromax 500 mg Route: IVPB; Infused Over: 1 hrs; Site: right antecubital; rv 05:14 Follow up: IV Status: Completed infusion; IV Intake: 250ml rv 04:04 Drug: Ativan 1 mg Route: IVP; Site: right antecubital; rv 05:13 Follow up: Response: No adverse reaction rv 04:38 CANCELLED (GIVEN. PT OWN STOCK.): Albuterol HFA Inhaler 2 puffs Inhalation once rv Intake: 05:14 IV: 250ml; Total: 250ml. rv 05:15 IV: 1000ml; Total: 1250ml. rv Outcome: 04:43 Decision to Hospitalize by Provider. [facility] 05:12 Admitted to ICU accompanied by tech, via stretcher, room 1, with chart, Report called rv to ENEDINA NEWSOME 05:12 Condition: stable 05:12 Instructed on the need for admit. 05:26 Patient left the ED. rv Signatures: Dispatcher [employer] EDManav Walsh RN RN rv Jalil Riggins RN RN rr5 Ally Patino Maurice, MD MD 7
--- NOTE | 2020-07-23 04:57 | P.HP ---
Certification for Inpatient Patient admitted to: Observation With expected LOS: <2 Midnights Patient will require the following post-hospital care: None Practitioner: I am a practitioner with admitting privileges, knowledge of patient current condition, hospital course, and medical plan of care. Services: Services provided to patient in accordance with Admission requirements found in Title 42 Section 412.3 of the Code of Federal Regulations <Ken Desai - Last Filed: 07/23/20 05:26> Patient History Date of Service: 07/23/20 Reason for admission: Tachycardia/Covid PNA/Hypothyroidism History of Present Illness: 45-year-old Yemeni-speaking obese female with a past medical history of hyperlipidemia, hypertension, and type 2 diabetes mellitus presents to the emergency room complaining of shortness of breath. Patient states that symptoms began late yesterday evening which prompted her to come to the emergency room. Patient was diagnosed positive for Covid approximately 1 month ago. She has had intermittent issues with breathing since then. Patient was seen in the ED here on 07/07/2020 but did not require admission. In the emergency room despite oxygen saturations of 98% on room air patient feels like she cannot get a deep breath. Lab work shows an elevated tsh level of 6.1 and the patient is tachycardic with heart rate ranging from 121 to 130. States that she feels palpitations. Denies any cardiac history. Denies any thyroid issues in the past. Vital signs on admission were 132/97, pulse rate of 95, respiratory rate of 24, temperature of 98.7 and 100% oxygen saturation room air. Prior to discharge patient's vitals changed. Her blood pressure was fairly unchanged but her heart rate increased as high as 151 with a respiratory rate of 23. Still at 100% oxygen saturation on room air. CT of the chest and chest x-ray with no acute pathology. D-dimer within normal limits. Glucose is slightly elevated at 171 and patient admits to intermittently taking her metformin. She is supposed to take 1000 mg b.i.d. but states that sometimes she does not because it makes her feel "shaky". Urine is negative. On physical exam patient is alert and oriented and in no distress. She does admit to having palpitations and currently her heart rate is 131. Patient will be placed in observation and further evaluated. Home medications list reviewed: No - Past Medical/Surgical History -: Essential hypertension -: Type 2 diabetes mellitus -: Hyperlipidemia -: Obesity -: None Psychosocial/ Personal History: Lives at home with - Family History Family History: Reviewed- Non-Contributory - Social History Smoking Status: Never smoker Alcohol use: No CD- Drugs: No Caffeine use: No Place of Residence: Home <Ken Desai - Last Filed: 07/23/20 05:26> Date of Service: 07/23/20 <NuraconcepcionBenjy - Last Filed: 07/23/20 07:49> Review of Systems General: As per HPI Eyes: Unremarkable ENT: Unremarkable Respiratory: Shortness of Breath, SOB with Excertion Cardiovascular: Palpitations, As per HPI Gastrointestinal: Unremarkable Genitourinary: Unremarkable Musculoskeletal: Unremarkable Integumentary: Unremarkable Neurological: Unremarkable Lymphatics: Unremarkable <Ken Desai - Last Filed: 07/23/20 05:26> Physical Examination - Vital Signs Temperature: 98.7 F Blood Pressure: 126/76 Pulse: 118 Respirations: 20 Pulse Ox (%): 98 (RA) - Physical Exam General: Alert, In no apparent distress, Oriented x3 HEENT: Atraumatic, Normocephalic, PERRLA, Mucous membr. moist/pink Neck: Supple, Other (Trachea midline) Respiratory: Clear to auscultation bilaterally, Normal air movement Cardiovascular: No edema, Normal pulses, Irregular heart rate/rhythm (Tachycardia) Capillary refill: <2 Seconds Gastrointestinal: Normal bowel sounds, Soft and benign, Non-distended Musculoskeletal: No clubbing, No swelling, No contractures, No erythema Integumentary: No rashes, No breakdown, No significant lesion, No tenderness/swelling Neurological: Normal gait, Normal speech, Normal strength at 5/5 x4 extr, Normal tone - Studies Laboratory Data (last 24 hrs) 07/23/20 01:10: PT 11.1, INR 0.94, APTT 32.0 07/23/20 01:10: WBC 9.7, Hgb 11.7 L, Hct 36.3, Plt Count 301 07/23/20 01:10: Sodium 141, Potassium 3.5, BUN 9, Creatinine 0.68, Glucose 171 H, Magnesium 2.1, Total Bilirubin 0.4, AST 17, ALT 26, Alkaline Phosphatase 92, Lipase 212 <Ken Desai Last Filed: 07/23/20 05:26> - Studies Laboratory Data (last 24 hrs) 07/23/20 01:10: PT 11.1, INR 0.94, APTT 32.0 07/23/20 01:10: WBC 9.7, Hgb 11.7 L, Hct 36.3, Plt Count 301 07/23/20 01:10: Sodium 141, Potassium 3.5, BUN 9, Creatinine 0.68, Glucose 171 H, Magnesium 2.1, Total Bilirubin 0.4, AST 17, ALT 26, Alkaline Phosphatase 92, Lipase 212 <Benjy Faria - Last Filed: 07/23/20 07:49> Assessment and Plan - Plan Impression: Tachycardia: Previous diagnosis of Covid PNA approximately 1 month ago: Essential hypertension: Type 2 diabetes mellitus: Hypothyroidism: Plan: Tachycardia: Etiology unclear but patient was diagnosed with Covid pneumonia and her TSH levels are high at 6.[address] on telemetry. Will start on metoprolol 25 mg b.i.d.. Monitor heart rate. Patient denies any cardiac history. No chest pain. Has been complaining of shortness of breath and dyspnea on exertion. Highest heart rate in ED was 151 prior to discharge. On admission heart rate of 130. Previous diagnosis of Covid PNA approximately 1 month ago: Presented with complaints of shortness of breath. O2 saturations of 98-100% on room air. Will start on IV methylprednisolone, ascorbic acid, folic acid. Will cover empirically with azithromycin and Rocephin. Held off of Levaquin due to tachycardia. Essential hypertension: Blood pressure has remained stable. Will resume home medications once verified. Monitor blood pressure. Type 2 diabetes mellitus: Accu-Cheks a.c. HS. Diabetic diet. Patient is supposed to take 1000 mg of metformin b.i.d. but has been non compliant. States she sometimes misses her doses. States she can see her PCP till next month to adjust her medications. Counseled. Hypothyroidism: Denies a history of thyroid issues. Does not take medications for hypothyroidism. The etiology of hypothyroidism is unclear. There is no prior TSH level measurement for this patient. At this facility. Discharge Plan: Home Plan to discharge in: 48 Hours - Advance Directives Does patient have a Living Will: No Does patient have a Durable POA for Healthcare: No - Code Status/Comfort Care Code Status Assessed: Yes Time Spent Managing Pts Care (In Minutes): 55 <Ken Desai - Last Filed: 07/23/20 05:26> - Plan Case discussed in detail with physician veterinary assistant. Agree with evaluation and assessment. Patient re-evaluated. Tachycardia likely related to Solu-Medrol. This has been discontinued. Patient with underlying hypertension. Will provide metoprolol at discharge. Continue with Dc summary recommendations. <Benjy Faria - Last Filed: 07/23/20 07:49>
[2020-07-23] MEDS ORDERED: METOPROLOL TAR 25 MG TAB PO SCH (06:00)
[2020-07-23] MEDS ORDERED: D50W 25 GM/50 ML SYRINGE/VIAL IV PRN (06:12)
[2020-07-23] MEDS ORDERED: ALPRAZOLAM 0.25 MG TABLET PO PRN (06:12)
[2020-07-23] MEDS ORDERED: GLUCAGON 1 MG/VIAL IM PRN (06:12)
[2020-07-23 06:29] VITALS: BMI 32.1
[2020-07-23 06:59] VITALS: O2SAT 99
[2020-07-23] MEDS ORDERED: POTASSIUM CL SA 10 MEQ TAB PO ONE (07:03)
[2020-07-23] MEDS ORDERED: INSULIN -REGULAR HUMAN 50 UNIT/0.5 ML ML SQ SCH (07:30)
--- NOTE | 2020-07-23 07:33 | P.DS ---
Admission Date: 07/23/20 Discharge Date: 07/23/20 Primary Care Provider: Dr. Davis Disposition: ROUTINE DISCHARGE Discharge Condition: GOOD Reason for Admission: Tachycardia/Covid PNA Consultations: none Procedures: CT scan: No pulmonary embolism. Atelectasis noted bilateral Medical Problem List: Shortness of breath likely atelectasis with history of COVID 19 pneumonia Sinus tachycardia a likely related to medication-steroids verses albuterol versus other Hypertension Diabetes mellitus type 2 [id number] Subclinical hypothyroidism Hyperlipidemia Obesity, BMI 32 Brief History of Present Illness: 45-year-old female with history of hyperlipidemia, hypertension and diabetes. Patient presented with shortness of breath. Patient was diagnosed with COVID about 1 month ago. She was treated at that time. She came in for shortness of breath. Room-air saturations within normal range. CT scan if showed no acute pathology. D-dimer within normal range. The patient was to be discharge but noted to have a heart rate in the 130s. Sinus tachycardia noted. Patient reports this occurred after she received steroids in the emergency room. Patient has been using albuterol as needed. Patient was admitted for observation. Hospital Course: Patient presented with shortness of breath. Patient was diagnosed with COVID 19 pneumonia several weeks ago. She was treated with oral steroids and supplements. Her symptoms has significantly improved. No evidence of fever, chills, for chest pain. Patient was seen in the ER for further evaluation of shortness of breath. C reactive protein negative. D-dimer negative. CT scan of the chest showed no evidence of pneumonia or pulmonary embolism. Atelectasis was noted. Patient was to have been discharged but patient found to have tachycardia. This appeared to have occurred after she received IV Solu-Medrol. Patient was given beta-rocío therapy to help with her tachycardia. Patient was admitted and observed. Patient also had been taking albuterol as needed as an outpatient. Sinus tachycardia likely related to [id number]-Vzmb-Hvglwh vs albuterol vs other etiology. Blood pressure was elevated upon admission. Patient has done well. Patient appears to be at baseline level. Tachycardia improved. For her shortness of breath/COVID 19/Atelectasis, patient will not require any antibiotic, antiviral or steroid medication at discharge. Recommend to continue with incentive spirometer at home. Recommend to discontinue albuterol as this may exacerbate tachycardia. For the sinus tachycardia, steroid treatment has been discontinued. Patient with slight elevation of blood pressure with underlying hypertension. Patient has done well with metoprolol. At discharge patient may continue with metoprolol 12.5 mg 1 pill twice daily for blood pressure control and heart rate control. Recommend to monitor blood pressure and heart rate daily. If blood pressure systolic less than 120 or heart rate less than 50 then metoprolol can be discontinued. Recommend to maintain blood pressure less than 140/90. If sinus tachycardia continues, recommend cardiology evaluation with possible Holter monitor as an outpatient. Recommend follow up with PCP this week further monitor and address closely. Patient will continue with COVID 19 guidelines. Patient with diabetes mellitus type 2 non-insulin dependent. This appears stable. At discharge she may continue with her medication. Recommend to maintain blood sugar less than 140 fasting and less than 200 after meals. Further adjustment can be done by her PCP. Patient with possible non clinical hypothyroidism. Tsh slightly elevated and T4 within normal range. Recommend to recheck tsh and free T4 in 2-4 weeks to further evaluate. Patient may require medication in the future if both continue to be significantly abnormal. Patient with obesity, lifestyle modification education provided. Patient with hyperlipidemia. At discharge she may continue with her medication. Vital Signs/Physical Exam: Temp Pulse Resp BP Pulse Ox 98.7 F 118 H 20 119/71 99 07/23/20 05:40 07/23/20 06:48 07/23/20 06:00 07/23/20 06:48 07/23/20 06:00 General: Alert, In no apparent distress, Oriented x3, Cooperative HEENT: Atraumatic Neck: Supple Respiratory: Clear to auscultation bilaterally Cardiovascular: Other (Sinus tachycardia rate around 110) Gastrointestinal: No tenderness, No masses, No rebound, No guarding Neurological: Normal speech, Normal strength at 5/5 x4 extr, Normal tone, Normal affect Laboratory Data at Discharge: WBC 9.7 K/uL (4.3-10.9) 07/23/20 01:10 Hgb 11.7 g/dL (12.0-15.0) L 07/23/20 01:10 Hct 36.3 % (36.0-45.0) 07/23/20 01:10 Plt Count 301 K/uL (152-406) 07/23/20 01:10 PT 11.1 SECONDS (9.5-12.5) 07/23/20 01:10 INR 0.94 07/23/20 01:10 APTT 32.0 SECONDS (24.3-36.9) 07/23/20 01:10 Sodium 141 mmol/L (136-145) 07/23/20 01:10 Potassium 3.5 mmol/L (3.5-5.1) 07/23/20 01:10 BUN 9 mg/dL (7-18) 07/23/20 01:10 Creatinine 0.68 mg/dL (0.55-1.3) 07/23/20 01:10 Glucose 171 mg/dL (74-106) H 07/23/20 01:10 Magnesium 2.1 mg/dL (1.8-2.4) 07/23/20 01:10 Total Bilirubin 0.4 mg/dL (0.2-1.0) 07/23/20 01:10 AST 17 U/L (15-37) 07/23/20 01:10 ALT 26 U/L (12-78) 07/23/20 01:10 Alkaline Phosphatase 92 U/L (45-117) 07/23/20 01:10 Lipase 212 U/L (73-393) 07/23/20 01:10 Home Medications: Atorvastatin Calcium 10 mg PO BEDTIME 07/23/20 Folic Acid 1 mg PO DAILY #30 tablet 07/23/20 Metformin HCl 1,000 mg PO BID 07/23/20 Metoprolol Tartrate [Lopressor*] 12.5 mg PO BID 6AM 6PM #60 tab 07/23/20 New Medications: Folic Acid 1 mg PO DAILY #30 tablet Metoprolol Tartrate [Lopressor*] 12.5 mg PO BID 6AM 6PM #60 tab Patient Discharge Instructions: 1. Follow up with PCP in 1 week to follow up this hospitalization. 2. Patient presented with shortness of breath. Patient was diagnosed with COVID 19 pneumonia several weeks ago. She was treated with oral steroids and supplements. Her symptoms has significantly improved. No evidence of fever, chills, for chest pain. Patient was seen in the ER for further evaluation of shortness of breath. C reactive protein negative. D- dimer negative. CT scan of the chest showed no evidence of pneumonia or pulmonary embolism. Atelectasis was noted. Patient was to have been discharged but patient found to have tachycardia. This appeared to have occurred after she received IV Solu-Medrol. Patient was given beta-rocío therapy to help with her tachycardia. Patient was admitted and observed. Patient also had been taking albuterol as needed as an outpatient. Sinus tachycardia likely related to dzbrhgfghy-Scdb-Gjlvri vs albuterol vs other etiology. Blood pressure was elevated upon admission. Patient has done well. Patient appears to be at baseline level. Tachycardia improved. For her shortness of breath/COVID 19/Atelectasis, patient will not require any antibiotic, antiviral or steroid medication at discharge. Recommend to continue with incentive spirometer at h ome. Recommend to discontinue albuterol as this may exacerbate tachycardia. For the sinus tachycardia, steroid treatment has been discontinued. Patient with slight elevation of blood pressure with underlying hypertension. Patient has done well with metoprolol. At discharge patient may continue with metoprolol 12.5 mg 1 pill twice daily for blood pressure control and heart rate control. Recommend to monitor blood pressure and heart rate daily. If blood pressure systolic less than 120 or heart rate less than 50 then metoprolol can be discontinued. Recommend to maintain blood pressure less than 140/90. If sinus tachycardia continues, recommend cardiology evaluation with possible Holter monitor as an outpatient. Recommend follow up with PCP this week further monitor and address closely. Patient will continue with COVID 19 guidelines. 3. Patient with diabetes mellitus type 2 non-insulin dependent. This appears stable. At discharge she may continue with her medication. Recommend to maintain blood sugar less than 140 fasting and less than 200 after meals. Further adjustment can be done by her PCP. 4. Patient with possible non clinical hypothyroidism. Tsh slightly elevated and T4 within normal range. Recommend to recheck tsh and free T4 in 2-4 weeks to further evaluate. Patient may require medication in the future if both continue to be significantly abnormal. 5. Patient with obesity, lifestyle modification education provided. 6. Patient with hyperlipidemia. At discharge she may continue with her medication. Diet: ADA Activity: Ad amanda Time spent managing pt's care (in minutes): 55
--- NOTE | 2020-07-23 08:47 | RAD REPORT ---
EXAM DESCRIPTION: RAD - Chest Single View - 07/23/2020 1:22 am CLINICAL HISTORY: SOB, positive COVID test 2-3 weeks earlier COMPARISON: Portable chest July 07 TECHNIQUE: AP portable chest image was obtained 07/23/2020 1:22 am . FINDINGS: Lung volumes are low. Lung base atelectasis present. No focal mass, consolidation or failu re findings. Heart and vasculature are normal. No measurable pleural effusion and no pneumothorax. No acute bony abnormality seen. No acute aortic findings suspected. IMPRESSION: No acute cardiopulmonary process. No significant change the comparison.
[2020-07-23 08:57] VITALS: BP 112/72; TEMP 97
[2020-07-23] MEDS ORDERED: METHYLPREDNISOLONE 40 MG INJ IV SCH (09:00)
[2020-07-23] MEDS ORDERED: FOLIC ACID 1 MG TABLET PO SCH (09:00)
[2020-07-23] MEDS ORDERED: ASCORBIC ACID 500 MG TABLET PO SCH (09:00)
[2020-07-23 10:31] LABS: Urine Appearance CLEAR; Urine Bilirubin NEGATIVE (NEG); Urine Blood TRACE (NEG); Urine Color YELLOW; Urine Glucose 3+ (NEG); Urine Protein NEGATIVE (NEG); Urine Urobilinogen 0.2 mg/dL (0.2-1.0); Urine pH 6.5 (5.0-7.0)
[2020-07-23 10:47] LABS: Urine Microscopic Reflex ORDER UMIC
[2020-07-23 11:19] LABS: Urine Bacteria <20 /HPF (<20); Urine Culture Reflex Order NOT NEEDED; Urine RBC <5 /HPF (NONE SEEN)
[2020-07-24] MEDS ORDERED: CEFTRIAXONE 1 GM/NS 50 ML 1 GM/50 ML BAG IV SCH (04:00)
[2020-07-24] MEDS ORDERED: AZITHROMYCIN IV 500 MG in NA CHLORIDE 0.9% 250 ML IVPB SCH (04:00)
[2020-07-24] MEDS ORDERED: CEFTRIAXONE/SWI 1gm 1 GM/10 ML SYR IVP SCH (04:00)
--- NOTE | 2020-07-24 12:22 | RAD REPORT ---
EXAM DESCRIPTION: CT - Chest For Pe Angio - 07/23/2020 5:47 am CLINICAL HISTORY: SOB TECHNIQUE: Contiguous axial images obtained through the chest during angiographic phase following th e uneventful administration of IV contrast. Sagittal and coronal reformatted images were provided. [place] P reformatted images were provided. This exam was performed according to our departmental dose-optimization program, which includes autom ated exposure control, adjustment of the mA and/or kV according to patient size and/or use of iterati ve reconstruction technique. COMPARISON: No prior exams provided for comparison. FINDINGS: Diagnostic quality: There is good opacification of the pulmonary arterial tree. Motion art ifact degrades image quality and limits evaluation of segmental and subsegmental vessels. Lungs: Minimal patchy right basilar opacities. Airways are patent. Pleura: No effusion. No pneumothorax. Heart and pericardium: The heart is normal in size. No pericardial effusion. Mediastinum and orion: No pathologically enlarged lymph nodes. Lower neck and chest wall: Unremarkable Vessels: No pulmonary arterial filling defects. Incidental note is made of a 2-vessel aortic arch wit h common origin of the right brachiocephalic and left common carotid arteries. No thoracic aortic ane urysm. Upper abdomen: Unremarkable Bones: Mild multilevel spondylosis. No acute fracture. IMPRESSION: 1. Motion artifact degrades image quality and limits evaluation of segmental and subse gmental vessels. No central pulmonary embolic disease. 2. Minimal patchy right basilar opacities (atelectasis and/or infiltrate). 3. Other findings as above. Electronically signed by: Antonio Spencer MD 07/23/2020 3:27 AM CDT Due to temporary technical issues with the PACS/Fluency reporting system, reports are being signed by the in house radiologist without review as a courtesy to ensure prompt reporting. The interpreting r adiologist is fully responsible for the content of the report.
== END 2020-07-23 11:08 | disposition home or self-care (01) ==
LOC: ER 23:44 → ERHOLD 07-23 04:54 → 3RD-ICU 07-23 05:18
PROVIDERS: ADMIT Family Medicine; ATTEND Family Medicine
DX: R00.0 Tachycardia, unspecified (principal); J98.11 Atelectasis; R06.02 Shortness of breath; Z86.19 Personal history of other infectious and parasitic diseases; I10 Essential (primary) hypertension; E11.65 Type 2 diabetes mellitus with hyperglycemia; E03.9 Hypothyroidism, unspecified; E78.5 Hyperlipidemia, unspecified; Z79.84 Long term (current) use of oral hypoglycemic drugs; Z79.899 Other long term (current) drug therapy; E66.9 Obesity, unspecified; Z68.30 Body mass index [BMI] 30.0-30.9, adult
CPT/HCPCS: 96365; 96361; 96368; 93005 ×3; 87040 ×2; 85025; 80048; 36415; 83735; 82550; 81025; 85610; 82947; 85379; 80076; 85730; 84443; 84484; 82553; 84439; 83690; 83880; 86140; 71275; 71045; 96375; 99285; Q9967; J0456; J0696; J7050; J7030; J2930; G0378 ×2; 81003; 81015